=== PATIENT | female | born 1930 | race Caucasian/White ===

== ENCOUNTER 2017-06-30 11:16 | Outpatient (CLI) | END 2017-06-30 11:38 | disposition short-term general hospital (02) | LOC: AMBL 11:16 | PROVIDERS: ATTEND Internal Medicine | DX: K94.09 Other complications of colostomy (principal); Z43.3 Encounter for attention to colostomy; F03.90 Unspecified dementia, unspecified severity, without behavioral disturbance, psychotic disturbance, mood disturbance, and anxiety ==

== ENCOUNTER 2017-07-08 08:46 | Outpatient (CLI) | END 2017-07-08 09:02 | disposition short-term general hospital (02) | LOC: AMBL 08:46 | PROVIDERS: ATTEND Internal Medicine | DX: R40.4 Transient alteration of awareness (principal); R06.89 Other abnormalities of breathing; R00.0 Tachycardia, unspecified; I49.3 Ventricular premature depolarization; R40.2421 Glasgow coma scale score 9-12, in the field [EMT or ambulance] ==